=== PATIENT | male | born 1960 | race Caucasian/White ===

== ENCOUNTER → 2017-01-08 | Outpatient (CLI) | payer MEDICARE, OTHER ==
--- NOTE | 2017-01-08 13:59 | CT ---
EXAMINATION TYPE: CT soft tissue neck w con DATE OF EXAM: 01/08/2017 1:37 PM COMPARISON: 06/22/2016 HISTORY: Mass right side neck; Camparison study follow-up parotid mass CT DLP: 351.70 mGycm CONTRAST: CT scan of the neck is performed with IV Contrast, patient injected with 100 ml mL of Omnipaque 300. Contrast enhanced CT of the neck was performed from the skull base through the lung apices. AIRWAY: The supraglottic, glottic, and subglottic portions of the airway appear patent and free of mass. SALIVARY GLANDS: Again noted are 2 solid lesions of the right parotid gland. One lesion seen within t he deep portion of the parotid lobe measuring 2.7 x 1.8 cm versus 2.7 x 1.8 cm previously. The second nodule along the superior anterior margin measures 2.2 x 1.4 cm versus 2.1 x 1.2 cm. No additional n odules are seen within either parotid. Submandibular glands are free of the lesion as well. THYROID GLAND: No nodules or masses seen. LYMPH NODES: No adenopathy seen greater than 1cm. LUNG APICES: No nodule or mass is seen. OTHER: Vascular structures are patent. Mild degenerative change of the cervical spine. No abscess s een. IMPRESSION: Stable solid right-sided parotid lesions with differential diagnosis discussed previously.
== END | disposition home or self-care (01) ==
LOC: RADCTMAIN 12:56
PROVIDERS: ATTEND Otolaryngology
DX: K11.8 Other diseases of salivary glands (principal); R22.1 Localized swelling, mass and lump, neck
CPT/HCPCS: 70491; Q9967

== ENCOUNTER → 2017-08-20 | Outpatient (CLI) | payer MEDICARE, OTHER ==
--- NOTE | 2017-08-20 11:19 | US ---
EXAMINATION TYPE: US st tissue neck DATE OF EXAM: 08/20/2017 COMPARISON: CT 01/08/2017 CLINICAL HISTORY: 57-year-old male Right Parotid Mass R22.1. Patient states palpable lump right parot id x 2 years, previously biopsied TECHNIQUE: Multiple sonographic images targeting the patient's right parotid lump. FINDINGS: Right neck scanned, no evidence of lymphadenopathy. At the site of palpable abnormality along the rig ht parotid gland, there is a lobulated, solid, hypoechoic lesion measuring 3.6 x 2.5 x 2.[address] of 01/08/2017, we get measurements of 4.3 x 2.8 x 2.4 cm when remeasured in the coronal and sagittal planes, refer to a sagittal image 26 and coronal image 34. IMPRESSION: Allowing for differences in imaging modalities, the right parotid mass is not felt to have significan tly changed. On ultrasound, measurements are 3.6 x 2.5 x 2.7 cm versus 4.3 x 2.4 x 2.8 cm as remeasur ed on the CT of 01/08/2017. Correlate with previous biopsy results.
== END | disposition home or self-care (01) ==
LOC: EEVIPCON 09:40 → RADUSWWP 09:40
PROVIDERS: ATTEND Otolaryngology
DX: K11.8 Other diseases of salivary glands (principal)
CPT/HCPCS: 76536

== ENCOUNTER → 2018-09-21 | Outpatient (CLI) | payer MEDICARE, OTHER ==
--- NOTE | 2018-09-21 09:44 | US ---
EXAMINATION TYPE: US soft tissue head/neck DATE OF EXAM: 09/21/2018 COMPARISON: CT neck January 08, 2017 and recent neck ultrasound August 20, 2017 CLINICAL HISTORY: K11.8 Parotid Masses. right parotid mass followup; left posterior neck pain US right Parotid Gland: hypoechoic lobular mass is seen at palpable as noted in prior US; size today = 2.4 x 2.5 x 1.1cm. No masses seen in left parotid gland. At left lateral neck pain inferior to ear: lymph node is seen = 2.0 x 1.0 x 0.7cm. . Redemonstration of heterogeneous hypoechoic lobulated deep solid right parotid mass as detailed abo ve, measurements are decreased or diminished in size from prior ultrasound. Scanning of left neck parotid gland shows no suspicious masses on current study. Inferior to parotid gland there is prominent oval hypoechoic lesion could reflect lymph node, there is not grade visualiz ation of normal fatty hilum. Correlate clinically with prior biopsy results. Consider short-term ultr asound follow-up or PET CT follow-up based on clinical correlation. IMPRESSION: As above
== END | disposition home or self-care (01) ==
LOC: RADUSWWP 08:13
PROVIDERS: ATTEND Otolaryngology
DX: K11.8 Other diseases of salivary glands (principal)
CPT/HCPCS: 76536

== ENCOUNTER → 2019-03-13 | Outpatient (CLI) | payer MEDICARE, OTHER ==
--- NOTE | 2019-03-13 09:41 | US ---
EXAMINATION TYPE: US soft tissue head/neck DATE OF EXAM: 03/13/2019 COMPARISON: Ultrasound 09/21/2018 CLINICAL HISTORY: 58-year-old male K11.8 right parotid M54.2 left neck pain. Technique: Multiple sonographic images of the bilateral parotid glands as well as targeted scanning o f the left lateral neck at the site of patient's pain and swelling. FINDINGS: RIGHT Hypoechoic Parotid Mass still present = 2.4 x 1.4 x 1.1cm. This is previously measured 2.5 x 2.4 x 1.1 cm. On imaging, it also looks overall unchanged LEFT Parotid: no masses seen Lymph Node is seen at patient c/o pain and swelling left lateral and posterior neck with size = 1.8 x 0.7 x 0.7cm with cortical thickness = 0.3cm. Previously, lymph node measures 2.0 x 1.0 x 0.7 cm. IMPRESSION: 1. Relatively stable hypoechoic right parotid mass injury 2.4 x 1.4 cm. 2. Relatively unchanged 1.8 x 0.7 cm left lateral neck lymph node at the site of patient's pain and s welling. 3. Continued follow-up as clinically indicated.
== END | disposition home or self-care (01) ==
LOC: RADUSWWP 08:27
PROVIDERS: ATTEND Otolaryngology
DX: K11.8 Other diseases of salivary glands (principal)
CPT/HCPCS: 76536

== ENCOUNTER → 2019-10-19 | Outpatient (CLI) | payer MEDICARE, OTHER ==
--- NOTE | 2019-10-19 10:47 | MR ---
EXAMINATION TYPE: MR lumbar spine wo con DATE OF EXAM: 10/19/2019 COMPARISON: NONE HISTORY: UNSTEADY GAIN, NECK AND LOW BACK PAIN TECHNIQUE: T1 and T2 axial and sagittal images of the lumbar spine are submitted. FINDINGS: Exam is limited due to motion artifact. No abnormal signal within the visualized spinal cor d. At L1-2 there is no disc herniation or canal stenosis. No foraminal encroachment. At L2-3 there is no disc herniation or canal stenosis. Mild circumferential disc bulging. Vertebral b frank hemangioma of L2. No Canal stenosis. Mild bilateral foraminal encroachment At L3-4 there is degenerative disc disease with circumferential disc bulging and mild bilateral clement inal encroachment. No Canal stenosis. Mild hypertrophy of the facets and ligamentum flavum. At L4-5 there is degenerative disc disease with broad-based disc bulging. Hypertrophy of the facet aura ints and ligamenta flava result in mild canal stenosis and mild to moderate bilateral foraminal encro achment. No focal herniation. Broad-based disc bulging greater paracentrally to the left. At L5-S1 there is facet arthropathy. No disc herniation or canal stenosis. Neural foramina patent. Mi ld central disc bulging. IMPRESSION: 1. Multilevel degenerative disc disease with disc bulging at multiple levels most severe at L4-L5 wit h evidence of mild canal stenosis and mild to moderate bilateral foraminal encroachment. 2. Mild multilevel degenerative disc disease with mild bilateral foraminal encroachment as discussed above. 3. Multilevel facet arthropathy. EXAMINATION TYPE: MR cervical spine wo con DATE OF EXAM: 10/19/2019 COMPARISON: NONE HISTORY: UNSTEADY GAIN, NECK AND LOW BACK PAIN TECHNIQUE: T1 sagittal and coronal, T2 sagittal, and gradient echo axial views of the cervical spine are submitted. FINDINGS: The cranial cervical junction is preserved. There is abnormal signal within the cervical sp inal cord at C6-C7 extending to C7-T1. Loss the normal cervical lordosis with fusion of C4-C5. Multil evel degenerative disc disease noted. Curvature of the spine noted. At C2-3 there is degenerative disc disease with facet arthropathy greater on the left. Uncovertebral joint hypertrophy noted. Neural foramina remain patent on the right with mild narrowing on the left. At C3-4 there is degenerative disc disease and facet arthropathy greater on the left. No canal stenos is or focal herniation. At C4-5 there is there is fusion of C4-C5. No disc herniation. Uncovertebral joint and facet hypertro phy are noted. Neural foramina remain patent with mild narrowing bilaterally. At C5-6 there is severe degenerative disc disease. There is broad-based disc protrusion capped by spu r with uncovertebral joint hypertrophy resulting in severe spinal stenosis and compression of the spi nal cord. Severe bilateral foraminal encroachment. Abnormal signal within the spinal cord suggests my elitis or myelomalacia. At C6-7 there is severe degenerative disc disease. There is broad-based disc protrusion capped by spu r with uncovertebral joint hypertrophy resulting in severe spinal stenosis and compression of the spi nal cord. Severe bilateral foraminal encroachment. Abnormal signal within the spinal cord suggests my elitis or myelomalacia. At C7-T1 there is no disc herniation or canal stenosis. No foraminal encroachment. IMPRESSION: 1. Severe spinal stenosis C5-6 and C6-C7 due to disc protrusion capped by spur and hypertrophic costa ges as discussed above. There is abnormal signal within the spinal cord likely on the basis of compre ssive myelitis. 2. Multilevel degenerative disc disease with fusion of C4-C5 as discussed above.
== END | disposition home or self-care (01) ==
LOC: RADMRIMAIN 08:55
PROVIDERS: ATTEND Physical Medicine & Rehabilitation
DX: M48.02 Spinal stenosis, cervical region (principal); M50.222 Other cervical disc displacement at C5-C6 level; M50.321 Other cervical disc degeneration at C4-C5 level; M48.061 Spinal stenosis, lumbar region without neurogenic claudication; M51.26 Other intervertebral disc displacement, lumbar region; M51.36 Other intervertebral disc degeneration, lumbar region; M46.96 Unspecified inflammatory spondylopathy, lumbar region
CPT/HCPCS: 72141; 72148

== ENCOUNTER → 2019-11-17 | Outpatient (CLI) | payer MEDICARE, OTHER ==
[2019-11-17 11:15] LABS: Basophils % (A) 0 %; Eosinophils # (A) 0.1 k/uL (0-0.7); Eosinophils % (A) 1 %; HCT 44.5 % (39.0-53.0); HGB 14.3 gm/dL (13.0-17.5); Lymphocytes # (A) 1.3 k/uL (1.0-4.8); Lymphocytes % (A) 30 %; MCH 29.3 pg (25.0-35.0); MCV 91.4 fL (80.0-100.0); Mean Platelet Volume 7.4; Monocytes # (A) 0.3 k/uL (0-1.0); Monocytes % (A) 7 %; Neutrophils # (A) 2.6 k/uL (1.3-7.7); Neutrophils % (A) 59 %; Platelet Count 190 k/uL (150-450); RBC 4.87 m/uL (4.30-5.90); WBC 4.4 k/uL (3.8-10.6)
[2019-11-17 11:16] LABS: ALT 19 U/L (4-49); AST 21 U/L (17-59); African American GFR (CKD) >90 (>60 ml/min/1.73 sqM); Albumin 4.2 g/dL (3.5-5.0); Alkaline Phosphatase 89 U/L (38-126); Anion Gap 8 mmol/L; Blood Urea Nitrogen 15 mg/dL (9-20); Calcium 9.3 mg/dL (8.4-10.2); Carbon Dioxide 24 mmol/L (22-30); Chloride 100 mmol/L (98-107); Glucose 117 mg/dL (74-99); Non-African American GFR(CKD) 89 (>60 ml/min/1.73 sqM); Potassium 4.4 mmol/L (3.5-5.1); Sodium 132 mmol/L (137-145); Total Bilirubin 0.4 mg/dL (0.2-1.3); Total Protein 7.6 g/dL (6.3-8.2)
[2019-11-17 11:30] LABS: Appearance,Urine Clear (Clear); Bacteria,Urine Rare /hpf; Bilirubin,Urine Negative (Negative); Blood,Urine Small (Negative); Color,Urine Yellow; Glucose,Urine (UA) Negative (Negative); Ketones,Urine Negative (Negative); Leukocyte Esterase,Urine Negative (Negative); Mucus,Urine Rare /hpf; Nitrite,Urine Negative (Negative); PH, Urine 6.5 (5.0-8.0); Protein,Urine Negative (Negative); RBC,Urine 8 /hpf (0-5); Specific Gravity,Urine 1.012 (1.001-1.035); Squamous Epithelial Cell,Urine <1 /hpf (0-4); Urobilinogen,Urine <2.0 mg/dL (<2.0); WBC,Urine 1 /hpf (0-5)
--- NOTE | 2019-11-17 11:49 | XR ---
EXAMINATION TYPE: XR chest 2V DATE OF EXAM: 11/17/2019 COMPARISON: 06/22/2016 INDICATION: Cervical myelopathy, stenosis TECHNIQUE: Frontal and lateral views of the chest are obtained. FINDINGS: The heart size is normal. The pulmonary vasculature is normal. There may be a tiny granuloma in the left upper lung field. This may been interval change. Follow-up is recommended.. IMPRESSION: 1. No acute pulmonary process. 2. Interval finding of a small nodularity left upper lung field. Follow-up chest x-ray study in 3 mon ths is recommended.
[2019-11-17 11:50] LABS: INR 0.9 (<1.2); Partial Thromboplastin Time 24.5 sec (22.0-30.0); Prothrombin Time 9.5 sec (9.0-12.0)
== END | disposition home or self-care (01) ==
LOC: LABPAT 09:57
PROVIDERS: ATTEND Orthopaedic Surgery Orthopaedic Surgery of the Spine
DX: R91.8 Other nonspecific abnormal finding of lung field (principal); J42 Unspecified chronic bronchitis
CPT/HCPCS: 71046; 80053; 81001; 85025; 85610; 85730; 86850; 86900; 86901; 93005

== ENCOUNTER 2019-11-29 10:46 | Day surgery (SDC) | payer MEDICARE, OTHER ==
[2019-11-20 13:46] VITALS: BMI 30.2
[2019-11-28 14:47] LABS: Appearance,Urine Clear (Clear); Bilirubin,Urine Negative (Negative); Blood,Urine Small (Negative); Color,Urine Yellow; Glucose,Urine (UA) Negative (Negative); Ketones,Urine Negative (Negative); Leukocyte Esterase,Urine Negative (Negative); Mucus,Urine Rare /hpf; Nitrite,Urine Negative (Negative); PH, Urine 6.5 (5.0-8.0); Protein,Urine Negative (Negative); RBC,Urine 7 /hpf (0-5); Specific Gravity,Urine 1.012 (1.001-1.035); Urobilinogen,Urine <2.0 mg/dL (<2.0); WBC,Urine 1 /hpf (0-5)
[~2019-11-29 10:46] MED LIST: BACITRACIN 50,000 UNIT, POLYMYXIN B 500,000 UNIT in SODIUM CHLORIDE 0.9% IRRIGATIO 1,00... IRRIGATION ONE; CLINDAMYCIN 900 MG in DEXTROSE 5% IN WATER 50 ML IVPB ONE; DEXAMETHASONE SOD PHOSPHATE 10 MG/ML 1 ML VIAL IV ONE; HYDROmorphone 0.5 MG/0.5 ML SYRINGE IVP PRN; LIDOCAINE 1% (10MG/ML) FOR IV START INTRADERMA PRN; MIDAZOLAM 2 MG/2 ML VIAL IV PRN; ONDANSETRON 4 MG/2 ML VIAL IVP ONE; fentaNYL (PF) 50 MCG/ML 2 ML AMP IVP PRN
[2019-11-29] MEDS: LACTATED RINGERS 1,000 ML IV SCH (11:28)
[2019-11-29] MEDS ORDERED: KETAMINE 10 MG/ML 20 ML VIAL ONE (11:49)
[2019-11-29] MEDS ORDERED: NEOSTIGMINE 1 MG/ML 10 ML VIAL ONE (11:49)
[2019-11-29] MEDS ORDERED: GLYCOPYRROLATE 0.2 MG/ML 2 ML VIAL ONE (11:49)
[2019-11-29] MEDS ORDERED: MIDAZOLAM 2 MG/2 ML VIAL ONE (11:49)
[2019-11-29] MEDS ORDERED: PHENYLEPHRINE-0.9% NACL SYG 1 MG/10 ML SYRINGE ONE (11:49)
[2019-11-29] MEDS ORDERED: ePHEDrine SULFATE/0.9% NACL/PF 50 MG/5 ML SYRINGE IV ONE (11:49)
[2019-11-29] MEDS ORDERED: fentaNYL (PF) 50 MCG/ML 2 ML AMP ONE (11:49)
[2019-11-29] MEDS ORDERED: SUCCINYLCHOLINE CHLORIDE 100 MG/5 ML SYR IV ONE (11:49)
[2019-11-29] MEDS ORDERED: PROPOFOL 10 MG/ML 20 ML VIAL IV ONE (11:49)
[2019-11-29] MEDS ORDERED: ROCURONIUM BROMIDE 10 MG/ML 5 ML VIAL IV ONE (11:49)
[2019-11-29] MEDS ORDERED: LIDOCAINE 1% INJ 10MG/ML (20 ML MDV) ONE (11:49)
[2019-11-29] MEDS ORDERED: DEXAMETHASONE SOD PHOS (MDV) 100 MG/10 ML VIAL ONE (11:49)
[2019-11-29] MEDS ORDERED: LACTATED RINGERS 1,000 ML IV ONE (12:25)
[2019-11-29] MEDS ORDERED: GELATIN SPONGE,ABSORB (LARGE) 1 EACH SPONGE MISCELLANE ONE (12:51)
[2019-11-29] MEDS ORDERED: LIDOCAINE 2%-EPI 1:100,000 20 ML VIAL SQ ONE (12:51)
[2019-11-29] MEDS ORDERED: BUPIVACAINE (PF) 0.5% 30 ML VIAL SQ ONE (12:51)
[2019-11-29] MEDS ORDERED: THROMBIN (BOVINE) 5,000 UNIT VIAL TOPICAL ONE (12:52)
--- NOTE | 2019-11-29 13:04 | XR ---
EXAMINATION TYPE: XR cervical spine 1V DATE OF EXAM: 11/29/2019 COMPARISON: MRI of the cervical spine dated 10/19/2019 HISTORY: Neck pain, needle placement TECHNIQUE: Single crosstable lateral view of the cervical spine was obtained intraoperatively FINDINGS IMPRESSION: The patient is intubated. There is straightening of usual cervical lordosis due to patient positioning. C4 and C5 are fused as seen on the prior MRI. Needle localization is at the i nferior aspect of C5.
[2019-11-29] MEDS ORDERED: MAGNESIUM HYDROXIDE 2,400 MG/10 ML CUP PO PRN (14:23)
[2019-11-29] MEDS ORDERED: HYDROmorphone 0.5 MG/0.5 ML SYRINGE IVP PRN (14:23)
[2019-11-29] MEDS ORDERED: BENZOCAINE/MENTHOL LOZENG 1 EACH LOZENGE MUCOUS MEM PRN (14:23)
[2019-11-29] MEDS ORDERED: ONDANSETRON 4 MG/2 ML VIAL IVP PRN (14:25)
[2019-11-29] MEDS ORDERED: ACETAMINOPHEN TAB 325 MG TAB PO PRN (14:25)
[2019-11-29] MEDS ORDERED: HYDROcodone/APAP 5-325MG 1 EACH TAB PO PRN (14:25)
[2019-11-29] MEDS ORDERED: DOCUSATE 100 MG CAP PO PRN (14:31)
[2019-11-29] MEDS ORDERED: ALPRAZolam 0.5 MG TAB PO PRN (14:31)
[2019-11-29] MEDS ORDERED: ALBUTEROL NEBULIZED 2.5 MG/3 ML INHALATION PRN (14:31)
[2019-11-29] MEDS ORDERED: ALBUTEROL INHALER 60 PUFF/8 GM INHALER INHALATION PRN (14:31)
--- NOTE | 2019-11-29 14:35 | XR ---
EXAMINATION TYPE: XR cervical spine 1V DATE OF EXAM: 11/29/2019 COMPARISON: Intraoperative x-ray of the same date HISTORY: Hardware placement TECHNIQUE: Crosstable lateral intraoperative single view of the cervical spine FINDINGS/IMPRESSION: Anterior cervical fusion device spans the C5-7 vertebral levels. Osseous fusion of C4 and C5 again noted. Near osseous fusion of C3-C4. Patient is intubated. Straightening of usual cervical lordosis.
--- NOTE | 2019-11-29 14:39 | P.OP ---
Date of Procedure: 11/29/19 Preoperative Diagnosis: Cervical myelopathy, cervical myelomalacia, severe cervical stenosis C5 6 C6 7, history of anterior cervical fusion C4 5 in 1977, upper extremity weakness, upper extremity radiculopathy, altered gait, history of schizophrenia and COPD Postoperative Diagnosis: Cervical myelopathy, cervical myelomalacia, severe cervical stenosis C5 6 C6 7, history of anterior cervical fusion C4 5 in 1977, upper extremity weakness, upper extremity radiculopathy, altered gait, history of schizophrenia and COPD Anesthesia: GETA Pathology: none sent Condition: stable Disposition: PACU Description of Procedure: BRIEF OPERATIVE NOTE Preoperative Diagnosis:Cervical myelopathy, cervical myelomalacia, severe cervical stenosis C5 6 C6 7, history of anterior cervical fusion C4 5 in 1977, upper extremity weakness, upper extremity radiculopathy, altered gait, history of schizophrenia and COPD Postoperative Diagnosis:Cervical myelopathy, cervical myelomalacia, severe cervical stenosis C5 6 C6 7, history of anterior cervical fusion C4 5 in 1977, upper extremity weakness, upper extremity radiculopathy, altered gait, history of schizophrenia and COPD Procedure: Anterior cervical decompression with discectomy and fusion C5 6 C6 7 Placement of interbody graft C5 6 C6 7 Application of anterior cervical plate C5 6 and 7 Surgeon: Dr. Smith Tube Man: Cristofer Squires is present throughout the entire the case persistence during positioning, dissection, exposure, visualization, and all crucial elements of the case as well as closure. Anesthesia: General anesthesia per Dr. Hubbard Estimated blood loss: Possibly 100 mL Complications: None apparent Components implanted: K2M [place] anterior cervical plate system with Vikos interbody allograft bone graft Disposition: To recovery room in good stable condition. OPERATIVE INDICATIONS The patient has had long-standing issues in their neck and upper extremities. Kathie montgomery had prior anterior cervical discectomy and fusion over 30 years ago at C4 5. 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 With his multiple medical issues I felt that his surgery would need inpatient status for appropriate monitoring and care postoperatively. The patient's symptoms correlated well with his imaging findings. He is found have severe stenosis at C5 6 and C6 7 with cord change behind C5 6 and 7 with cervical myelopathy and myelomalacia. He is having weakness at his upper extremities and changes in his mobility and his ability to ambulate. Portions of this were significantly due to his cervical spine and will likely to get worse with the severity of his stenosis. The patient has been through conservative treatment. We discussed this with him and his caretakers at length and answered their questions about her ability. We discussed various treatment options including surgery, and the patient wishes to proceed with surgery We discussed the risk, patient's alternatives and benefits of surgery including but not limited to, risk of bleeding risk of infection, risk of need for further surgery, risk of decreased, loss of motion, muscle function, malunion nonunion, hardware failure, nerve damage, paralysis, heart attack, and . OPERATIVE SUMMARY After discussing all the risks, patient alternatives and benefits at length, the patient elected to proceed with surgical intervention, signed informed consent, and presented for their procedure. The patient was seen and examined in the preoperative holding area and the surgical site was marked. The patient was given antibiotics and brought to the operating room. The patient was positioned on the operating room table in a supine position be ing careful to pad any bony prominences and pressure points. The patient was sedated and intubated by anesthesia in standard fashion. Once the airway and C- spine were stabilized the patient's arms were padded and tucked at her side, with her shoulders gently taped. The head was placed in a donut pad with the neck in good neutral alignment and position. We were careful to maintain the patient's cervical spine and good neutral alignment and position throughout. The patient was prepped and draped in a normal standard fashion. An appropriate timeout and keystone protocol performed. We were able to proceed with the surgery. The local wound area was infiltrated with local anesthetic. An incision was made transversely approximately 2-1/2 cm over the appropriate levels at C6. Dissection was taken down subcutaneously to the level of the platysma which was split in line with its fibers. Dissection was taken with a carotid approach, with the trachea and esophagus medial and the carotid sheath laterally. We dissected down to the anterior surface of the vertebral bodies. Intraoperative x-ray was taken which showed a marker at the appropriate level of C5 6. With the appropriate level positively confirmed, we were able to proceed with discectomy at the appropriate levels. The patient had very large anterior cervical osteophytes which were able to be removed with rongeurs. All of the operative levels were exposed appropriately at C5 6 and C6 7. The patient had all their twitches back, and there was no evidence of recurrent laryngeal issue. The wound was copiously irrigated and suctioned dry as had been done periodically throughout the case. At the appropriate level/levels, I established an annulotomy with an 11 blade scalpel. There is severe disc loss and anterior posterior osteophytic spurring. A discectomy was performed with a combination of pituitary rongeurs, curettes, a high-speed bur, and Kerrison rongeurs. The posterior longitudinal ligament was taken down as were any posterior osteophytes. This gave good central and bilateral foraminal decompression. There is no evidence of any dural tear or leak. The endplates were prepared with a high-speed bur. With the endplates in good parallel position, I was able to size for the appropriate size interbody graft. The wound was irrigated and suctioned dry the graft was prepared and malleted into position. It had good alignment and position with the anterior surface flush with the anterior surface of the vertebral bodies. This was done similarly the appropriate levels first at C5 6 and then at C6 7. With the grafts intact, I was able to measure and contour and appropriate sized plate. The plate was positioned at the midline over the appropriate levels at C5 6 and 7. Screw holes were established with a hand drill and drill guide. Screws were placed in good alignment and position with excellent bony purchase. They were seated under the locking device. The construct was checked and found to be stable. Intraoperative x-ray was taken which showed good alignment and position of the implants at the appropriate levels. There was no evidence of any dural tear or leak. Good hemostasis was maintained. The wound was copiously irrigated and suctioned dry as had been done periodically throughout the case. The platysma was closed with absorbable suture. The subcutaneous tissue was c losed. The subcuticular tissue was closed with absorbable suture. The wound was cleaned and dried and dressed appropriately. A soft cervical collar was placed appropriately. The patient was woken up by anesthesia, extubated, transferred back gently to their hospital bed and brought to the recovery room in good stable condition. The patient will be admitted to the hospital for appropriate postoperative care, medical management and monitoring. We will continue to follow them closely about the postoperative course.
[2019-11-29] MEDS: SODIUM CHLORIDE 0.9% 1,000 ML IV SCH (15:46)
[2019-11-29] MEDS: IPRATROPIUM 0.5 MG/2.5 ML NEBU INHALATION SCH ×2 (17:15→21:34)
[2019-11-29 19:33] VITALS: RESP 18
[2019-11-29] MEDS: CLINDAMYCIN 600 MG in DEXTROSE 5% IN WATER 50 ML IVPB SCH ×2 (19:51)
[2019-11-29] MEDS ORDERED: ATORVASTATIN 20 MG TAB PO SCH (21:00)
[2019-11-29] MEDS ORDERED: MONTELUKAST 10 MG TAB PO SCH (21:00)
[2019-11-29] MEDS ORDERED: OXYBUTYNIN CHLORIDE 5 MG TAB PO SCH (21:00)
[2019-11-29] MEDS ORDERED: TAMSULOSIN 0.4 MG CAP.ER.24H PO SCH (21:00)
[2019-11-29] MEDS ORDERED: PANTOPRAZOLE 40 MG TABLET PO SCH (21:00)
[2019-11-29] MEDS: SYMBICORT 80-4.5 MCG INHALER INHALATION SCH (21:34)
[2019-11-30] MEDS: CLINDAMYCIN 600 MG in DEXTROSE 5% IN WATER 50 ML IVPB SCH ×2 (03:57)
[2019-11-30] MEDS: SODIUM CHLORIDE 0.9% 1,000 ML IV SCH (04:00)
[2019-11-30] MEDS: LACTATED RINGERS 1,000 ML IV SCH (05:43)
[2019-11-30 07:13] VITALS: BP 142/79; TEMP 97.6
[2019-11-30] MEDS: SYMBICORT 80-4.5 MCG INHALER INHALATION SCH (07:18)
[2019-11-30] MEDS: IPRATROPIUM 0.5 MG/2.5 ML NEBU INHALATION SCH ×2 (07:18→10:59)
[2019-11-30] MEDS ORDERED: LEVOFLOXACIN 500 MG TAB PO SCH (09:00)
[2019-11-30] MEDS ORDERED: SENNOSIDES-DOCUSATE SODIUM 1 EACH TAB PO SCH ×2 (09:00)
[2019-11-30] MEDS ORDERED: CLOPIDOGREL 75 MG TAB PO SCH (09:00)
--- NOTE | 2019-11-30 10:47 | P.DS ---
Providers Date of admission: 11/29/19 Expected date of discharge: 11/30/19 Attending physician: Deo Smith Primary care physician: [place] Gume [facility] Course: The patient presented on the day of admission as per their operative note. He had severe cervical stenosis with cervical myelopathy and underwent anterior cervical decompression with discectomy and fusion C5 6 C6 7. His history of schizophrenia and anxiety and that has been managed as well. He feels he is making improvement today with his lower extremities and his mobilization. His neck is sore but he has been able to eat. Physical Exam The incision site is clean dry and intact. There is no erythema no drainage. There is no purulence no evidence of infection. His neck is soft and supple without any significant swelling. Abdomen soft and nontender. Chest has good excursion with deep inspiration and expiration. The patient has active and passive range of motion intact at the upper and lower extremities. There is no acute change in neurologic status. He still has some weakness at his upper extremities as expected but is not having any worsening in his neuro status. Hospital Course postoperative day 1 status post anterior cervical decompression with discectomy and fusion C5 6 C6 7 for his cervical myelopathy with severe cervical stenosis History of mental illness with schizophrenia and anxiety The patient has been making good progress postoperatively. They have completed the prophylactic antibiotics without any signs or symptoms of infection. The patient has been able to advance their diet, and is tolerating diet adequately. The pain was initially controlled with IV medications and is now controlled appropriately with oral medications. The patient has been able to increase their mobilization. There has not been any change in his overall mental status and he appears to be stable. The patient has progressed appropriately. I think they are in good stable condition for discharge today. They will be sent home with appropriate prescriptions. I answered their questions to the best of my ability in a language that they can understand and they are agreeable with the plan. They will follow up as directed in approximately 2 weeks or sooner if he is having any problems . Patient Condition at Discharge: Good Plan - Discharge Summary Discharge Rx Participant: No New Discharge Prescriptions: No Action Celecoxib 200 mg PO BID Tamsulosin HCl [Flomax] 0.4 mg PO HS ALPRAZolam [Alprazolam] 0.5 mg PO BID PRN PRN Reason: Anxiety Docusate [Colace] 100 mg PO BID PRN PRN Reason: constipation Atorvastatin [Lipitor] 20 mg PO HS Pantoprazole Sodium [Protonix] 40 mg PO HS Montelukast [Singulair] 10 mg PO HS Oxybutynin Chloride [Ditropan] 5 mg PO HS Clopidogrel [Plavix] 75 mg PO DAILY #30 tablet Albuterol Sulfate [Ventolin HFA] 2 puff INHALATION Q6H PRN PRN Reason: Shortness Of Breath Invega 819 mg IM Q90D Fluticasone/Umeclidin/Vilanter [Trelegy Ellipta 100-62.5-25] 1 inhalation INHALATION HS Albuterol Nebulized [Ventolin Nebulized] 1 applic INHALATION Q6H PRN PRN Reason: Shortness Of Breath Levofloxacin [Levaquin] 500 mg PO BID Discharge Medication List ALPRAZolam [Alprazolam] 0.5 mg PO BID PRN 06/22/16 [History] Atorvastatin [Lipitor] 20 mg PO HS 06/22/16 [History] Celecoxib 200 mg PO BID 06/22/16 [History] Docusate [Colace] 100 mg PO BID PRN 06/22/16 [History] Montelukast [Singulair] 10 mg PO HS 06/22/16 [History] Oxybutynin Chloride [Ditropan] 5 mg PO HS 06/22/16 [History] Pantoprazole Sodium [Protonix] 40 mg PO HS 06/22/16 [History] Tamsulosin HCl [Flomax] 0.4 mg PO HS 06/22/16 [History] Clopidogrel [Plavix] 75 mg PO DAILY #30 tablet 06/25/16 [Rx] Albuterol Nebulized [Ventolin Nebulized] 1 applic INHALATION Q6H PRN 11/20/19 [History] Albuterol Sulfate [Ventolin HFA] 2 puff INHALATION Q6H PRN 11/20/19 [History] Fluticasone/Umeclidin/Vilanter [Trelegy Ellipta 100-62.5-25] 1 inhalation INHALATION HS 11/20/19 [History] Invega 819 mg IM Q90D 11/20/19 [History] Levofloxacin [Levaquin] 500 mg PO BID 11/23/19 [History] Follow up Appointment(s)/Referral(s): Roosevelt Golden DO [Primary Care Provider] - 12/07/19 2:30 pm Deo Smith DO [Doctor of Osteopathic Medicine] - 12/15/19 1:30 pm
[2019-11-30 11:07] VITALS: PULSE 92
== END 2019-11-30 12:40 ==
LOC: OR 10:46 → 4SSUR 14:41 → OR 11-30 12:40
PROVIDERS: ATTEND Orthopaedic Surgery Orthopaedic Surgery of the Spine
DX: M48.02 Spinal stenosis, cervical region (principal); G95.89 Other specified diseases of spinal cord; R26.9 Unspecified abnormalities of gait and mobility; M25.78 Osteophyte, vertebrae; M50.022 Cervical disc disorder at C5-C6 level with myelopathy; M50.122 Cervical disc disorder at C5-C6 level with radiculopathy; Z91.81 History of falling; Z98.1 Arthrodesis status; M47.816 Spondylosis without myelopathy or radiculopathy, lumbar region; M47.817 Spondylosis without myelopathy or radiculopathy, lumbosacral region; M51.36 Other intervertebral disc degeneration, lumbar region; M16.0 Bilateral primary osteoarthritis of hip; F20.0 Paranoid schizophrenia; K21.9 Gastro-esophageal reflux disease without esophagitis; F17.218 Nicotine dependence, cigarettes, with other nicotine-induced disorders; J44.9 Chronic obstructive pulmonary disease, unspecified; Z90.49 Acquired absence of other specified parts of digestive tract; E78.5 Hyperlipidemia, unspecified; F41.9 Anxiety disorder, unspecified; E66.3 Overweight; Z68.30 Body mass index [BMI] 30.0-30.9, adult; Z97.2 Presence of dental prosthetic device (complete) (partial); Z79.02 Long term (current) use of antithrombotics/antiplatelets; Z79.1 Long term (current) use of non-steroidal anti-inflammatories (NSAID); Z79.51 Long term (current) use of inhaled steroids; Z79.899 Other long term (current) drug therapy; Z84.2 Family history of other diseases of the genitourinary system; Z80.52 Family history of malignant neoplasm of bladder; Z88.1 Allergy status to other antibiotic agents; Z88.0 Allergy status to penicillin
CPT/HCPCS: 94640 ×4; 72020; 22551; 22552; 22845; 20931; C1713 ×2; C1762 ×2; J2250; J2710; J2405; J2001; J3010; J1100; J2370; J0330; J2704; J1170; 81001; 86850; 86900; 86901

== ENCOUNTER → 2020-07-17 | Outpatient (CLI) | payer MEDICARE, OTHER ==
--- NOTE | 2020-07-17 16:16 | US ---
EXAMINATION TYPE: US Soft tissue head/neck/ parotid gland DATE OF EXAM: 07/17/2020 COMPARISON: Ultrasound 09/21/2018, 03/13/2019. CTA neck/. CLINICAL HISTORY: K11.8 Parotid Mass. Right parotid mass and lymphadenopathy per patient. US findings of Right Parotid Gland: Versus 12/29/2016 CT neck comparison (series 6, image 25) there is a redemonstrated hypoechoic solid mass within the right mid lateral deep parotid gland measuring appr oximately 2.8 x 2.4 cm craniocaudal and AP (image 20) which previously measured 2.8 x 2.[address]. Immediately superior within the upper lateral parotid is a 2.1 x 1.2 cm cyst (image 18 ), which previously measured 2.1 x 1.[address] US findings of Left Parotid Gland: Nonenlarged lymph nodes within the right gland. IMPRESSION: Solid hypoechoic mass within the right parotid gland and immediately superior cyst are similar to [address] comparison given differences in technique. No significant interval change. No lymphadenopathy.
== END | disposition home or self-care (01) ==
LOC: RADUSWWP 13:34
PROVIDERS: ATTEND Otolaryngology
DX: K11.6 Mucocele of salivary gland (principal)
CPT/HCPCS: 76536